=== PATIENT | male | born 1950 | race Caucasian/White ===

== ENCOUNTER 2023-05-04 09:23 | Emergency (ER) | payer MEDICARE ==
[2023-05-04 10:07] LABS: BASOPHILS ABSOLUTE AUTO 0.02 K/mm3 (0.01-0.08); BASOPHILS PERCENT AUTO 0.2 % (0.1-1.2); EOSINOPHILS ABSOLUTE AUTO 0.11 K/mm3 (0.04-0.54); EOSINOPHILS PERCENT AUTO 1.2 (0.8-7.0); HEMATOCRIT 35.9 % (40.1-51.0); IMMATURE GRAN ABSOLUTE AUTO 0.01 K/mm3 (0.00-0.10); IMMATURE GRAN PERCENT AUTO 0.1 % (<=1.0); LYMPHOCYTES ABSOLUTE AUTO 0.38 K/mm3 (1.32-3.57); LYMPHOCYTES PERCENT AUTO 4.2 % (21.8-53.1); MEAN CORPUSCULAR HEMOGLOBIN 30.7 pg (25.7-32.2); MEAN CORPUSCULAR HGB CONC 33.1 g/dl (32.2-35.5); MEAN CORPUSCULAR VOLUME 92.5 fl (79.0-92.2); MEAN PLATELET VOLUME 10.2 fl (9.4-12.3); MONOCYTES ABSOLUTE AUTO 0.67 K/mm3 (0.30-0.82); MONOCYTES PERCENT AUTO 7.4 % (5.3-12.2); NEUTROPHILS ABSOLUTE AUTO 7.91 K/mm3 (1.78-5.38); NEUTROPHILS PERCENT AUTO 86.9 % (34.0-67.9); PLATELET COUNT,PLT 189 K/mm3 (163-337); RED BLOOD CELL COUNT 3.88 M/mm3 (4.63-6.08)
[2023-05-04 10:16] LABS: HEMOGLOBIN 11.9 gm/dl (13.7-17.5)
[2023-05-04 10:39] LABS: A/G RATIO 1.1 (1-2); ALANINE AMINOTRANSFERASE,ALT 27 U/L (16-63); ALBUMIN 3.1 g/dl (3.4-5.0); ALKALINE PHOSPHATASE 66 U/L (46-116); ANION GAP 9.8 (5-15); ASPARTATE AMNIOTRANSFERASE,AST 16 U/L (15-37); BLOOD UREA NITROGEN,BUN 25 mg/dL (7-18); BUN/CREATININE RATIO 22.7 (14-18); CARBON DIOXIDE,CO2 30 mEq/L (21-32); CHLORIDE,CL 107 mEq/L (98-107); CREATININE 1.1 mg/dL (0.7-1.3); ESTIMATED GFR 72 mL/min (>60); GLUCOSE RANDOM 106 mg/dL (70-99); POTASSIUM,K 2.8 mEq/L (3.5-5.1); SODIUM,NA 144 mEq/L (136-145)
[2023-05-04] MEDS ORDERED: Potassium Chloride 20 MEQ Tab.ER PO ONE ×2 (11:04→14:56)
[2023-05-04 11:10] LABS: APPEARANCE,URINE CLEAR (Clear); BILIRUBIN,URINE 1+ (Negative); COLOR,URINE YELLOW (Yellow); GLUCOSE,URINE NEGATIVE (Negative); KETONES,URINE TRACE (Negative); LEUKOCYTE ESTERASE,URINE NEGATIVE (Negative); NITRITE,URINE NEGATIVE (Negative); OCCULT BLOOD,URINE 1+ (Negative); PH,URINE 6.5 (5.0-8.0); PROTEIN,URINE 1+ (Negative)
[2023-05-04] MEDS ORDERED: NS + KCl 20mEq/L 1,000 ML IV SCH (11:15)
[2023-05-04 11:26] LABS: BACTERIA,URINE MODERATE /hpf (FEW); EPITHELIAL CELLS,URINE NOT SEEN /hpf (0-5); MUCUS,URINE NOT SEEN /hpf (FEW); WBC,URINE 0-5 /hpf (0-5)
== END 2023-05-04 16:19 ==
LOC: JD.ED 09:23
DX: R09.02 Hypoxemia (principal); E87.6 Hypokalemia; F03.90 Unspecified dementia, unspecified severity, without behavioral disturbance, psychotic disturbance, mood disturbance, and anxiety; R29.6 Repeated falls; K21.9 Gastro-esophageal reflux disease without esophagitis; I25.10 Atherosclerotic heart disease of native coronary artery without angina pectoris; E78.00 Pure hypercholesterolemia, unspecified; I25.2 Old myocardial infarction; Z79.899 Other long term (current) drug therapy; Z79.82 Long term (current) use of aspirin; Z88.8 Allergy status to other drugs, medicaments and biological substances; Z88.0 Allergy status to penicillin
CPT/HCPCS: 0241U; 36415; 36600; 70450; 71045; 80053; 80143; 80179; 80306; 80307; 81001; 82550; 82803; 82947; 83605; 83735; 83880; 84443; 84484; 85007; 85025; 85027; 85379; 85610; 85730; 87040; 87086; 93005; 96365; 96366; 99285; A9270; J3480; 93010; 99283

== ENCOUNTER 2023-05-04 21:15 | Emergency (ER) | payer MEDICARE ==
[2023-05-04 21:50] LABS: HEMATOCRIT 35.4 % (40.1-51.0); HEMOGLOBIN 11.6 gm/dl (13.7-17.5); MEAN CORPUSCULAR HEMOGLOBIN 30.9 pg (25.7-32.2); MEAN CORPUSCULAR HGB CONC 32.8 g/dl (32.2-35.5); MEAN CORPUSCULAR VOLUME 94.4 fl (79.0-92.2); MEAN PLATELET VOLUME 9.9 fl (9.4-12.3); PLATELET COUNT,PLT 177 K/mm3 (163-337); RED BLOOD CELL COUNT 3.75 M/mm3 (4.63-6.08); WHITE BLOOD CELL COUNT,WBC 6.49 K/mm3 (4.23-9.07)
[2023-05-04 22:06] LABS: BASE EXCESS ARTERIAL 2.5 (-2-2.0); O2 SATURATION ARTERIAL 91.4 % (96.0-97.0)
[2023-05-04 22:11] LABS: INR 1.13
[2023-05-04 22:11] LABS: CORONAVIRUS COVID-19 NAA NEGATIVE (NEGATIVE); INFLUENZA A NAA NEGATIVE (NEGATIVE); RESPIRATORY SYNCYTIAL VIR NAA NEGATIVE (NEGATIVE)
[2023-05-04 22:12] LABS: PTT,PARTIAL THROMBOPLSTIN TIME 27.6 SECONDS (21.7-31.4)
[2023-05-04 22:15] LABS: LACTIC ACID 1.7 mmol/L (0.4-2.0)
[2023-05-04 22:20] LABS: BAND PERCENT MAN 0 % (0-10); BASOPHILS PERCENT MAN 1 (0.2-1.2); EOSINOPHILS PERCENT MAN 2 % (0.8-7.0); LYMPHOCYTES % ATYPICAL MANUAL 0 %; LYMPHOCYTES PERCENT MAN 3 % (20-40); MONOCYTES PERCENT MAN 5 % (2-10)
[2023-05-04 22:21] LABS: PLATELET COUNT ESTIMATE ADEQUATE
[2023-05-04 22:22] LABS: A/G RATIO 1.1 (1-2); ACETAMINOPHEN 5 ug/mL (10-30); ALANINE AMINOTRANSFERASE,ALT 29 U/L (16-63); ALBUMIN 3.2 g/dl (3.4-5.0); ALKALINE PHOSPHATASE 67 U/L (46-116); ANION GAP 10.4 (5-15); ASPARTATE AMNIOTRANSFERASE,AST 15 U/L (15-37); BLOOD UREA NITROGEN,BUN 27 mg/dL (7-18); BUN/CREATININE RATIO 19.3 (14-18); CALCIUM 9.1 mg/dL (8.5-10.1); CARBON DIOXIDE,CO2 31 mEq/L (21-32); CHLORIDE,CL 107 mEq/L (98-107); CREATINE KINASE,CK 44 U/L (39-308); CREATININE 1.4 mg/dL (0.7-1.3); ESTIMATED GFR 54 mL/min (>60); GLUCOSE RANDOM 147 mg/dL (70-99); MAGNESIUM 1.7 mg/dL (1.8-2.4); POTASSIUM,K 3.4 mEq/L (3.5-5.1); PROTEIN TOTAL,TP 6.2 g/dl (6.4-8.2); SODIUM,NA 145 mEq/L (136-145); TROPONIN I HIGH SENSITIVITY 5 pg/mL (<=76); TSH 1.504 uIU/mL (0.358-3.74)
[2023-05-04 23:11] LABS: APPEARANCE,URINE CLEAR (Clear); BILIRUBIN,URINE 1+ (Negative); COLOR,URINE DARK YELLOW (Yellow); GLUCOSE,URINE NEGATIVE (Negative); KETONES,URINE 1+ (Negative); LEUKOCYTE ESTERASE,URINE NEGATIVE (Negative); NITRITE,URINE NEGATIVE (Negative); OCCULT BLOOD,URINE 2+ (Negative); PH,URINE 6.5 (5.0-8.0); PROTEIN,URINE 1+ (Negative)
[2023-05-04 23:22] LABS: BARBITURATE SCREEN,URINE NEGATIVE (CUTOFF=200); BENZODIAZEPINES SCREEN,URINE NEGATIVE (CUTOFF=150); BUPRENORPHINE SCREEN,URINE NEGATIVE (CUTOFF=10); METHADONE SCREEN, URINE NEGATIVE (CUT0FF=200); METHAMPHETAMINES SCREEN, URINE NEGATIVE (CUTOFF=500); OXYCODONE SCREEN,URINE NEGATIVE (CUT0FF=100); PROPOXYPHENE SCREEN,URINE NEGATIVE (CUTOFF=300); THC SCREEN,URINE 20 NG/ML NEGATIVE (CUTOFF=50)
[2023-05-04 23:34] LABS: AMPHETAMINES SCREEN, URINE NEGATIVE (CUTOFF=500)
[2023-05-04 23:45] LABS: BACTERIA,URINE FEW /hpf (FEW); EPITHELIAL CELLS,URINE NOT SEEN /hpf (0-5); HYALINE CASTS,URINE 0-5 /lpf (0-5); MUCUS,URINE NOT SEEN /hpf (FEW); RBC,URINE 75-100 /hpf (0-5); WBC,URINE 0-5 /hpf (0-5)
== END 2023-05-05 15:45 | disposition home or self-care (01) ==
LOC: JD.ED 21:15
DX: R40.4 Transient alteration of awareness (principal); R33.9 Retention of urine, unspecified; F03.90 Unspecified dementia, unspecified severity, without behavioral disturbance, psychotic disturbance, mood disturbance, and anxiety; R13.10 Dysphagia, unspecified; K21.9 Gastro-esophageal reflux disease without esophagitis; E78.00 Pure hypercholesterolemia, unspecified; I25.2 Old myocardial infarction; I25.10 Atherosclerotic heart disease of native coronary artery without angina pectoris; Z95.1 Presence of aortocoronary bypass graft; Z88.0 Allergy status to penicillin; Z88.8 Allergy status to other drugs, medicaments and biological substances
CPT/HCPCS: 0241U; 36415; 36600; 51702; 70450; 70450-26; 71045; 71045-26; 80053; 80143; 80179; 80306; 80307; 81001; 82550; 82803; 82947; 83605; 83735; 83880; 84443; 84484; 85007; 85027; 85379; 85610; 85730; 87040; 87086; 93005; 93010; 99283; 99285

== ENCOUNTER 2023-05-06 15:15 | Inpatient (IN) | payer MEDICARE ==
[2023-05-06 16:28] LABS: BASE EXCESS ARTERIAL 4.1 (-2-2.0); BICARBONATE,ARTERIAL 28.2 meq/L (22.0-26.0); O2 SATURATION ARTERIAL 93.1 % (96.0-97.0); PCO2 ARTERIAL 42.4 mmHg (35.0-45.0)
[2023-05-06 16:33] LABS: BASOPHILS ABSOLUTE AUTO 0.01 K/mm3 (0.01-0.08); BASOPHILS PERCENT AUTO 0.1 % (0.1-1.2); EOSINOPHILS ABSOLUTE AUTO 0.01 K/mm3 (0.04-0.54); EOSINOPHILS PERCENT AUTO 0.1 (0.8-7.0); HEMATOCRIT 37.8 % (40.1-51.0); HEMOGLOBIN 12.3 gm/dl (13.7-17.5); IMMATURE GRAN ABSOLUTE AUTO 0.01 K/mm3 (0.00-0.10); IMMATURE GRAN PERCENT AUTO 0.1 % (<=1.0); LYMPHOCYTES ABSOLUTE AUTO 0.27 K/mm3 (1.32-3.57); LYMPHOCYTES PERCENT AUTO 3.7 % (21.8-53.1); MEAN CORPUSCULAR HEMOGLOBIN 30.8 pg (25.7-32.2); MEAN CORPUSCULAR HGB CONC 32.5 g/dl (32.2-35.5); MEAN CORPUSCULAR VOLUME 94.5 fl (79.0-92.2); MEAN PLATELET VOLUME 10.4 fl (9.4-12.3); MONOCYTES ABSOLUTE AUTO 0.67 K/mm3 (0.30-0.82); MONOCYTES PERCENT AUTO 9.1 % (5.3-12.2); NEUTROPHILS ABSOLUTE AUTO 6.36 K/mm3 (1.78-5.38); NEUTROPHILS PERCENT AUTO 86.9 % (34.0-67.9); PLATELET COUNT,PLT 201 K/mm3 (163-337); WHITE BLOOD CELL COUNT,WBC 7.33 K/mm3 (4.23-9.07)
[2023-05-06 16:47] LABS: A/G RATIO 0.8 (1-2); ALANINE AMINOTRANSFERASE,ALT 27 U/L (16-63); ALBUMIN 2.8 g/dl (3.4-5.0); ALKALINE PHOSPHATASE 64 U/L (46-116); ANION GAP 12.9 (5-15); ASPARTATE AMNIOTRANSFERASE,AST 36 U/L (15-37); BILIRUBIN TOTAL 1.3 mg/dL (0.2-1.0); BLOOD UREA NITROGEN,BUN 31 mg/dL (7-18); BUN/CREATININE RATIO 22.1 (14-18); CALCIUM 9.3 mg/dL (8.5-10.1); CARBON DIOXIDE,CO2 29 mEq/L (21-32); CHLORIDE,CL 108 mEq/L (98-107); CREATININE 1.4 mg/dL (0.7-1.3); ESTIMATED GFR 54 mL/min (>60); GLUCOSE RANDOM 130 mg/dL (70-99); POTASSIUM,K 2.9 mEq/L (3.5-5.1); PROTEIN TOTAL,TP 6.4 g/dl (6.4-8.2); SODIUM,NA 147 mEq/L (136-145)
[2023-05-06] MEDS ORDERED: Sodium Chloride 0.9% 1,000 ML IV ONE (17:00)
[2023-05-06 17:15] LABS: C-REACTIVE PROTEIN 22.7 mg/dL (<1.0)
[2023-05-06] MEDS: Potassium Chloride 10 MEQ in Premix Bag 1 BAG IV SCH ×4 (17:35→20:54)
[2023-05-06] MEDS ORDERED: Levofloxacin/Dextrose 5%-Water 750 MG in Premix Bag 1 BAG IV SCH (18:00)
[2023-05-06] MEDS ORDERED: Albuterol 0.083% 2.5 MG/3 ML Neb Soln NEB PRN (18:34)
[2023-05-06] MEDS ORDERED: Docusate Sodium 100 MG Cap PO PRN (18:34)
[2023-05-06] MEDS ORDERED: Acetaminophen 325 MG Tab PO PRN (18:34)
[2023-05-06] MEDS ORDERED: Sennosides/Docusate Sodium 50-8.6 MG Tab PO PRN (18:34)
[2023-05-07 06:37] LABS: BASOPHILS ABSOLUTE AUTO 0.01 K/mm3 (0.01-0.08); BASOPHILS PERCENT AUTO 0.2 % (0.1-1.2); EOSINOPHILS ABSOLUTE AUTO 0.06 K/mm3 (0.04-0.54); HEMATOCRIT 36.1 % (40.1-51.0); HEMOGLOBIN 11.5 gm/dl (13.7-17.5); IMMATURE GRAN ABSOLUTE AUTO 0.01 K/mm3 (0.00-0.10); IMMATURE GRAN PERCENT AUTO 0.2 % (<=1.0); LYMPHOCYTES ABSOLUTE AUTO 0.42 K/mm3 (1.32-3.57); LYMPHOCYTES PERCENT AUTO 7.3 % (21.8-53.1); MEAN CORPUSCULAR HGB CONC 31.9 g/dl (32.2-35.5); MEAN CORPUSCULAR VOLUME 94.3 fl (79.0-92.2); MEAN PLATELET VOLUME 10.3 fl (9.4-12.3); MONOCYTES ABSOLUTE AUTO 0.52 K/mm3 (0.30-0.82); NEUTROPHILS ABSOLUTE AUTO 4.76 K/mm3 (1.78-5.38); NEUTROPHILS PERCENT AUTO 82.3 % (34.0-67.9); PLATELET COUNT,PLT 200 K/mm3 (163-337); RED BLOOD CELL COUNT 3.83 M/mm3 (4.63-6.08); WHITE BLOOD CELL COUNT,WBC 5.78 K/mm3 (4.23-9.07)
[2023-05-07 06:49] LABS: ANION GAP 12.6 (5-15); BUN/CREATININE RATIO 25.5 (14-18); CALCIUM 9.2 mg/dL (8.5-10.1); CREATININE 1.1 mg/dL (0.7-1.3); EST CRCL DRUG DOSING (CG) 49.04 mL/min; MAGNESIUM 1.6 mg/dL (1.8-2.4); POTASSIUM,K 3.6 mEq/L (3.5-5.1)
[2023-05-07] MEDS ORDERED: Magnesium Sulfate (4.06 MEQ/ML) 5 GM/10 ML SDV IV ONE (07:06)
[2023-05-07] MEDS: Aspirin 81 MG Tab.Chew PO SCH (08:14)
[2023-05-07] MEDS: Lisinopril 20 MG Tab PO SCH (08:15)
[2023-05-07] MEDS: Acetaminophen 325 MG Tab PO SCH ×3 (08:21→20:44)
[2023-05-07] MEDS: Enoxaparin 40 MG/0.4 ML Syringe SUBCUT SCH (08:22)
[2023-05-07] MEDS ORDERED: QUEtiapine 100 MG Tab PO SCH (21:00)
[2023-05-07] MEDS ORDERED: traZODone 50 MG Tab PO SCH (21:00)
[2023-05-08 06:05] LABS: BASOPHILS ABSOLUTE AUTO 0.02 K/mm3 (0.01-0.08); BASOPHILS PERCENT AUTO 0.5 % (0.1-1.2); EOSINOPHILS ABSOLUTE AUTO 0.22 K/mm3 (0.04-0.54); EOSINOPHILS PERCENT AUTO 5.4 (0.8-7.0); HEMATOCRIT 33.4 % (40.1-51.0); HEMOGLOBIN 10.5 gm/dl (13.7-17.5); LYMPHOCYTES ABSOLUTE AUTO 0.41 K/mm3 (1.32-3.57); MEAN CORPUSCULAR HEMOGLOBIN 29.8 pg (25.7-32.2); MEAN CORPUSCULAR HGB CONC 31.4 g/dl (32.2-35.5); MEAN CORPUSCULAR VOLUME 94.9 fl (79.0-92.2); MEAN PLATELET VOLUME 10.1 fl (9.4-12.3); MONOCYTES ABSOLUTE AUTO 0.38 K/mm3 (0.30-0.82); MONOCYTES PERCENT AUTO 9.3 % (5.3-12.2); NEUTROPHILS ABSOLUTE AUTO 3.07 K/mm3 (1.78-5.38); NEUTROPHILS PERCENT AUTO 74.8 % (34.0-67.9); PLATELET COUNT,PLT 205 K/mm3 (163-337); RED BLOOD CELL COUNT 3.52 M/mm3 (4.63-6.08)
[2023-05-08 06:17] LABS: BUN/CREATININE RATIO 26.4 (14-18); CALCIUM 8.8 mg/dL (8.5-10.1); CREATININE 1.1 mg/dL (0.7-1.3); EST CRCL DRUG DOSING (CG) 49.04 mL/min; MAGNESIUM 1.7 mg/dL (1.8-2.4)
[2023-05-08] MEDS ORDERED: Magnesium Oxide 400 MG Tab PO ONE (06:56)
[2023-05-08] MEDS ORDERED: Potassium Chloride 20 MEQ Tab.ER PO ONE (06:57)
[2023-05-08] MEDS: Aspirin 81 MG Tab.Chew PO SCH ×2 (07:55→08:02)
[2023-05-08] MEDS: Acetaminophen 325 MG Tab PO SCH ×2 (07:55→08:02)
[2023-05-08] MEDS: Lisinopril 20 MG Tab PO SCH ×2 (07:56→08:02)
[2023-05-08] MEDS: Enoxaparin 40 MG/0.4 ML Syringe SUBCUT SCH ×2 (07:56→08:02)
[2023-05-08] MEDS ORDERED: Levofloxacin 750 MG Tab PO SCH (18:00)
== END 2023-05-08 14:12 | disposition swing bed (61) | DRG 193 ==
LOC: JD.ED 15:15 → JD.MS 17:46
PROVIDERS: ADMIT Emergency Medicine; ATTEND Emergency Medicine
PROC: 4A13XR1 Monitoring of Arterial Saturation, Peripheral, External Approach (ICD-10-PCS; principal; 2023-05-06)
DX: J18.9 Pneumonia, unspecified organism (principal); J96.21 Acute and chronic respiratory failure with hypoxia; F02.C11 Dementia in other diseases classified elsewhere, severe, with agitation; R29.6 Repeated falls; F03.90 Unspecified dementia, unspecified severity, without behavioral disturbance, psychotic disturbance, mood disturbance, and anxiety; Z66 Do not resuscitate; E78.00 Pure hypercholesterolemia, unspecified; D86.9 Sarcoidosis, unspecified; G30.9 Alzheimer's disease, unspecified; E87.6 Hypokalemia; J98.4 Other disorders of lung; E83.42 Hypomagnesemia; Z88.0 Allergy status to penicillin; Z88.8 Allergy status to other drugs, medicaments and biological substances; I25.2 Old myocardial infarction; Z98.49 Cataract extraction status, unspecified eye; I25.10 Atherosclerotic heart disease of native coronary artery without angina pectoris; K21.9 Gastro-esophageal reflux disease without esophagitis; Z79.82 Long term (current) use of aspirin; Z79.899 Other long term (current) drug therapy
CPT/HCPCS: 36415; 36600; 71250; 80053; 82803; 85025; 86140; 96374; 99285; J3480; J7030; 80048; 83735; 87040; 87641; 92526-GN; 92610-GN; 93005; 93010; 94760; 94761; 97165-GO; 97530-GO; A9270-GY; J1650; J1956; J3475